=== PATIENT | female | born 1990 | race Caucasian/White ===

== ENCOUNTER 2018-03-25 22:08 | Emergency (ER) | payer MEDICAID, OTHER ==
[2018-03-25] MEDS: IBUPROFEN 600 MG TAB PO (22:39)
== END 2018-03-26 00:58 | disposition home or self-care (01) ==
LOC: FTE 03-26 00:58
DX: S93.401A Sprain of unspecified ligament of right ankle, initial encounter (principal); E66.01 Morbid (severe) obesity due to excess calories; X58.XXXA Exposure to other specified factors, initial encounter; Y92.9 Unspecified place or not applicable; Z68.42 Body mass index [BMI] 45.0-49.9, adult
CPT/HCPCS: 73610; 73610-RT; 99283-25

== ENCOUNTER 2018-10-18 18:15 | Emergency (ER) | payer MEDICAID ==
[2018-10-18] MEDS: IBUPROFEN 800 MG TAB PO (21:29)
== END 2018-10-18 23:56 | disposition home or self-care (01) ==
LOC: FTE 18:15
DX: M25.572 Pain in left ankle and joints of left foot (principal)
CPT/HCPCS: 73610; 73630-LT; 99283-25